=== PATIENT | male | born 1960 | race Caucasian/White ===

== ENCOUNTER → 2018-04-28 | Outpatient (CLI) | payer OTHER ==
--- NOTE | 2018-04-28 16:26 | PCVCIMAG ---
APPROVED REPORT Study performed: 04/28/2018 14:50:50 EXAM: Comprehensive 2D, Doppler, and color-flow Echocardiogram Patient Location: Echo lab Room #: 2Status: routine BSA: 3.17 HR: 82 bpmBP: 168/72 mmHg Rhythm: NSR Other Information Study Quality: Adequate Risk Factors: Cardiac Risk Factors: Hyperlipidemia, HTN, DM Indications Diabetes CAD Hypertension/HDD Elevated cor ca+ score 2D Dimensions IVSd: 11.90 (7-11mm)LVOT Diam: 27.64 (18-24mm) LVDd: 55.13 mm PWd: 11.04 (7-11mm)Ascending Ao: 42.20 (22-36mm) LVDs: 32.65 (25-40mm) Left Atrium: 34.99 (27-40mm) Aortic Root: 33.00 mm LV Single Plane 4CH: 52.32 % LV Single Plane 2CH: 59.18 % Biplane EF: 53.7 % Volumes Left Atrial Volume (Systole) Single Plane 4CH: 91.19 mLSingle Plane 2CH: 92.16 mL Biplane LA Volume: 100.00 mLLA ESV Index: 31.50 mL/m2 Aortic Valve AoV Peak Misael.: 1.32 m/s AO Peak Gr.: 6.95 mmHgLVOT Max P.10 mmHg LVOT Max V: 1.13 m/s JOSH Vmax: 5.13 cm2 Mitral Valve E/A Ratio: 1.0 MV Decel. Time: 191.41 ms MV E Max Misael.: 0.58 m/s MV A Misael.: 0.59 m/s IVRT: 93.43 ms Pulmonary Valve PV Peak Misael.: 0.90 m/sPV Peak Gr.: 3.27 mmHg Pulmonary Vein P Vein S: 0.59 m/sP Vein A: 0.33 m/s P Vein D: 0.40 m/sP Vein A Dur.: 107.3 msec P Vein S/D Ratio: 1.48 Tricuspid Valve TR Peak Misael.: 1.10 m/s TR Peak Gr.: 4.86 mmHg TV Vmax: 0.71 m/sPA Pressure: 12.00 mmHg Left Ventricle The left ventricle is normal size. There is normal LV segmental wall motion. Mild concentric left ventricular hypertrophy. Left ventricular systolic function is normal. The left ventricular ejection fraction is within the normal range. LVEF is 50-55%. The left ventricular diastolic function is normal. Right Ventricle The right ventricle is normal size. The right ventricular systolic function is normal. Atria The left atrium size is normal. The right atrium size is normal. Aortic Valve Aortic valve is trileaflet, mild sclerosis. No aortic regurgitation is present. There is no aortic valvular stenosis. Mitral Valve The mitral valve is normal in structure. There is no mitral valve regurgitation noted. No evidence of mitral valve stenosis. Tricuspid Valve The tricuspid valve is normal in structure. Trace tricuspid regurgitation. No pulmonary hypertension. Pulmonic Valve The pulmonary valve is normal in structure. There is no pulmonic valvular regurgitation. Great Vessels The aortic root is normal in size. Ascending aorta is mildly dilated 4.2cm Aortic arch is normal in caliber. The descending aorta is normal in caliber. IVC is not well visualized. Pericardium There is no pericardial effusion. There is no pleural effusion. <Conclusion> Left ventricular systolic function is normal. There is normal LV segmental wall motion. LVEF 55%. Aortic valve is trileaflet, mild sclerosis. No aortic regurgitation or stenosis The mitral valve is normal in structure. No mitral valve regurgitation Pulmonary artery pressure could not be reliably ascertained Ascending aorta is mildly dilated 4.2cm There is no pericardial effusion.
--- NOTE | 2018-04-28 16:29 | PCVCIMAG ---
APPROVED REPORT Patient Location: Echo lab- [facility] STRESS TEST Room #: 2 Stress Nurse: Josie Rousseau RN INDICATIONS: Coronary Calcium score > 400, Htpertension,diabetes, hyperlipidemia The patient exercised according to the FRAN protocol for 7:31 mins; achieving a work level of 10.4 METS. The resting heart rate of 77 bpm johan to a maximum heart rate of 142 bpm. This value represent 86% of the maximal, age-predicted heart rate. The resting blood pressure of 168/72 mmHg, johan to a maximum blood pressure of 230/100 mmHg. The exercise test was stopped due to fatigue. Hypertensive response to exercise Resting EKG: Sinus rhythm normal tracing Stress EKG: No ischemic electrocardiographic changes. Rare, isolated ventricular ectopy Conclusion 1. Maximal treadmill exercise study negative for ischemia. Low [place] treadmill exercise score. 2. No subjective signs of ischemia such as chest pain or anginal-like symptoms. Hypertensive response to exercise. 3. Average exercise capacity (10.4 METS)
== END | disposition home or self-care (01) ==
LOC: PCVCIMAG 15:33
PROVIDERS: ATTEND Internal Medicine
DX: G47.33 Obstructive sleep apnea (adult) (pediatric) (principal); I10 Essential (primary) hypertension; E11.9 Type 2 diabetes mellitus without complications; E78.5 Hyperlipidemia, unspecified
CPT/HCPCS: 93017; 93306